=== PATIENT | male | born 1965 | race Caucasian/White ===

== ENCOUNTER 2021-12-02 10:23 | Emergency (ER) | payer MEDICAID ==
[~2021-12-02] VITALS: Ht 167.6 cm; Wt 76.2 kg
[2021-12-02 10:24] VITALS: BP 127/74
--- NOTE | 2021-12-02 10:24 | NUR ---
BIBA BLS TAKEN TO BED 5
--- NOTE | 2021-12-02 10:44 | NUR ---
56 y/o male biba from work with c/o generalized weakness and near syncope x today. Patient has a 7/10 headache. Patient is also complaining of blurry vision. Patient has had this happen before, per patient "has cold sweat then passes out." Patient's medication was increased recently by vocational ed instructor and today was the first day taking new dosage. Medical History: HTN NKDA
--- NOTE | 2021-12-02 11:05 | NUR ---
Radiology at bedside.
--- NOTE | 2021-12-02 11:08 | NUR ---
lab at bedside.
[2021-12-02 11:56] LABS: BASOPHILS % (AUTO) 0.2 % (0.0-2.0); EOSINOPHILS % (AUTO) 0.2 % (0.0-4.0); HEMATOCRIT 39.4 % (36-52); HEMOGLOBIN 13.4 g/dL (12.0-18.0); LYMPHOCYTES # (AUTO) 0.7 K/uL (2.0-11.5); LYMPHOCYTES % (AUTO) 11.8 % (20.5-51.1); MEAN CORPUSCULAR HEMOGLOBIN 31 pg (27-31); MEAN CORPUSCULAR HGB CONC 34 g/dL (33-37); MEAN CORPUSCULAR VOLUME 89.8 fL (80-94); MONOCYTES # (AUTO) 0.3 K/uL (0.8-1.0); MONOCYTES % (AUTO) 4.5 % (1.7-9.3); NEUTROPHILS # (AUTO) 5.3 K/uL (1.8-7.7); NEUTROPHILS % (AUTO) 83.3 % (42.2-75.2); PLATELET COUNT (AUTO) 176 K/uL (140-450); RED BLOOD CELL COUNT(AUTO) 4.39 MIL/uL (4.20-6.10); RED CELL DISTRIBUTION WIDTH 13.4 % (11.6-13.7); WHITE BLOOD COUNT (AUTO) 6.3 K/uL (4.8-10.8)
--- NOTE | 2021-12-02 11:59 | NUR ---
56/M BIBA FROM WORK S/P NEAR SYNCOPAL EPISODE TODAY. PATIENT REPORT DIZZINESS AND WEAKNESS PRIOR TO INCIDENT, STATING HE BEGAN EXPERIENCING BLURRED VISION AND BECAME DIAPHORETIC. UPON ARRIVAL PATIENT STATES SYMPTOMS HAVE SUBSIDED BUT REPORTS 7/10 THROBBING HEADACHE, REPORTS HE RECEIVED HIS SECOND SHINGLES VACCINE YESTERDAY AND BELIEVES IT IS RELATED TO HIS SYMPTOMS TODAY. DENIES CP, SOB, RECENT FEVERS, N/V/D.
--- NOTE | 2021-12-02 12:13 | NUR ---
Patient ambulated to restroom with steady gait.
[2021-12-02 12:18] LABS: ALBUMIN 3.6 g/dL (3.4-5.0); ANION GAP 13.2 (8-16); ASPARTATE AMINOTRANSFERASE 16 U/L (15-37); CHLORIDE 102 mmol/L (98-107); GFR ARICAN-AMERICAN 100 mL/min (>90); GLUCOSE 89 mg/dL (74-106); POTASSIUM 4.2 mmol/L (3.5-5.1); SODIUM SERUM 137 mmol/L (136-145); TOTAL BILIRUBIN 0.7 mg/dL (0.0-1.0); UREA NITROGEN, BLOOD 13 mg/dL (7-18)
--- NOTE | 2021-12-02 14:05 | NUR ---
Patient was offered a sandwich and juice to eat.
[2021-12-02 16:55] VITALS: BP 97/47
--- NOTE | 2021-12-02 16:55 | NUR ---
Patient discharged with v/s stable. Written and verbal after care instructions given. Patient verbalized understanding. Ambulatory with steady gait. All questions addressed prior to discharge. Advised to follow up with PMD.
--- NOTE | 2021-12-02 16:59 | NUR ---
The patient's care was reviewed and supervised by ED Agency Nurse 9, RN, RN.
== END 2021-12-02 16:55 | disposition home or self-care (01) ==
LOC: MED 10:23
DX: R55 Syncope and collapse (principal)
CPT/HCPCS: 36415; 70450; 71045; 80053; 84484; 85025; 85379; 93005; 99285